=== PATIENT | male | born 1975 | race Two or more races ===

== ENCOUNTER 2024-06-04 09:27 | Emergency (ER) | payer OTHER ==
[~2024-06-04] VITALS: Ht 180.3 cm; Wt 106.4 kg
[2024-06-04 09:30] VITALS: BP 128/86; PULSE 84; RESP 18; TEMP 99; O2SAT 94
[2024-06-04 10:21] LABS: Urine Bacteria None Seen /hpf (None Seen)
[2024-06-04] MEDS: HYDROcodone-ACET 10/325MG TAB PO ONE (10:21)
--- NOTE | 2024-06-04 10:22 | ED.PDOC ---
HPI (NEURO) HPI Comments 49 y.o male with PMHx of migraines, presents to the ED for a chief complaint of a headache that started 3 days ago. Patient reports pain is localized at the top of his head but today radiated to the right side and is associated with photophobia. Patient reports pain is similar to previous migraines, states he has been taking Tylenol, up to 4,000mg per day x 2 days but states no relief. Patient denies any nausea, vomiting, fever, chills, vision changes, or recent head injuries/falls. Patient does mention recent flu like illness consisting of congestion and cough. Chief Complaint: Headache Time Seen by MD: 10:13 Primary Care Provider: LISA Reviewed Notes: Nurses Notes, Medications, Allergies Information Source: Patient Mode of Arrival: Ambulatory Severity: Moderate Headache Severity: Moderate, Like previous Headaches Timing: Days (3) Duration: Since onset Headache Quality: Sharp Headache Location: Generalized Onset: At rest Circumstances: Spontaneous Modifying factors: Nothing Associated Signs and Symptoms: Headache Past Medical History PAST MEDICAL HISTORY: Asthma Past Medical History (Other): migraines Surgical History (Other): left femur Family History Family History: Reviewed,noncontributory to illness Social History Smoker: Non-Smoker Alcohol: Denies ETOH Use Drugs: Denies Drug Use Lives In: Home Constitutional: denies: chills, diaphoresis, fatigue, fever, malaise, sweats, weakness, others EENTM: reports: photophobia; denies: blurred vision, double vision, ear bleeding, ear discharge, ear drainage, ear pain, ear ringing, eye pain, eye redness, hearing loss, mouth pain, mouth swelling, nasal discharge, nose bleeding, nose congestion, nose pain, tearing, throat pain, throat swelling, voice changes, others Respiratory: denies: cough, hemoptysis, orthopnea, SOB at rest, shortness of breath, SOB with excertion, stridor, wheezing, others Cardiovascular: denies: chest pain, dizzy spells, diaphoresis, Dyspnea on exertion, edema, irregular heart beat, left arm pain, lightheadedness, palpitations, PND, syncope, others Gastrointestinal: denies: abdomen distended, abdominal pain, blood streaked bowels, constipated, diarrhea, dysphagia, difficulty swallowing, hematemesis, melena, nausea, poor appetite, poor fluid intake, rectal bleeding, rectal pain, vomiting, others Genitourinary: denies: burning, dysuria, flank pain, frequency, hematuria, incontinence, penile discharge, penile sore, pain, testicle pain, testicle swelling, urgency, others Neurological: reports: headache; denies: dizziness, fainting, left sided numbness, left sided weakness, numbness, paresthesia, pre-existing deficit, right sided numbness, right sided weakness, seizure, speech problems, tingling, tremors, weakness, others Musculoskeletal: denies: back pain, gout, joint pain, joint swelling, muscle pain, muscle stiffness, neck pain, others Integumetry: denies: bruises, change in color, change in hair/nails, dryness, laceration, lesions, lumps, rash, wounds, others Allergic/Immunocompromised: denies: Difficulty Healing, Frequent Infections, Hives, Itching, others Hematologic/Lymphatic: denies: anemia, blood clots, easy bleeding, easy bruising, swollen glands, others Endocrine: denies: excessive hunger, excessive sweating, excessive thirst, excessive urination, flushing, intolerance to cold, intolerance to heat, unexplained weight gain, unexplained weight loss, others Psychiatric: denies: anxiety, bipolar disorder, depression, hopeless, panic disorder, schizophrenia, sleepless, suicidal, others All Other Systems: Reviewed and Negative Physical Exam General Appearance: No Apparent Distress HEENT: Normal ENT Inspection, Pharynx Normal, Sinuses (Mild tenderness to the sinuses), TMs Normal Neck: Full Range of Motion, Non-Tender, Normal, Normal Inspection Respiratory: Chest Non-Tender, Lungs Clear, No Accessory Muscle Use, No Respiratory Distress, Normal Breath Sounds Cardiovascular: No Edema, No JVD, No Murmur, No Gallop, Normal Peripheral Pulses, Regular Rate/Rhythm Breast Exam: Deferred Gastrointestinal: No Organomegaly, Non Tender, No Pulsatile Mass, Normal Bowel Sounds, Soft Genitalia: Deferred Pelvic: Deferred Rectal: Deferred Extremities: No calf tenderness, Normal capillary refill, Normal inspection, Normal range of motion, Non-tender, No pedal edema Musculoskeletal : Apperance: Normal Neurologic: Alert, surgical orderly II-XII nml as Tested, No Motor Deficits, Normal Affect, Normal Mood, No Sensory Deficits Cerebellar Function: Normal Reflexes: Normal Skin: Dry, Normal Color, Warm Lymphatic: No Adenopathy Was a procedure done? Was a procedure done?: No Differential Diagnosis (SZ) Seizure: N/A Headache: Cluster, Migraine, Subarachnoid Hemorrhage X-Ray, Labs, Meds, VS Vital Signs Date Time Temp Pulse Resp B/P (MAP) Pulse Ox O2 Delivery O2 Flow Rate FiO2 06/04/24 10:15 Room Air* 0 21 06/04/24 09:30 99.0 84 18 128/86 (100) 94 99.0 06/04/24 09:30 99.0 84 18 128/86 (100) 94 99.0 Lab Test 06/04/24 10:20 Range/Units Urine Color Light-yellow Yellow Urine Clarity Clear Clear Urine pH 7.5 5.0-9.0 Urine Specific [place] 1.018 1.001-1.035 Urine Protein Negative Negative Urine Ketones Negative Negative Urine Blood 1+ H Negative /uL Urine Nitrite Negative Negative Urine Bilirubin Negative Negative Urine Urobilinogen Normal Negative mg/dL Urine Leukocyte Esterase Negative Negative /uL Urine RBC 4 0 - 3 /hpf Urine Microscopic WBC < 1 0-3 /HPF Urine Squamous Epithelial Cells None seen <5 /hpf Urine Bacteria None seen None Seen /hpf Urine Glucose Normal Normal mg/dL Current Medications Medications (Trade) Dose Ordered Sig/Uriel Route Start Time Stop Time Status Last Admin Acetaminophen/ Hydrocodone Bitart ([place] 10/325MG Tab) 1 tab ONCE ONCE PO 06/04/24 10:15 06/04/24 10:17 DC 06/04/24 10:21 X-ray of the paranasal sinuses show: IMPRESSION: 1. Probable mucosal thickening and partial opacification of the paranasal sinuses. No fluid levels are seen. Correlate with clinical findings. If clinically indicated, CT could be obtained. 2. Sinus canchola appear intact. The patient was being discharged on Zithromax as well as [place] The patient was also given a [place] here in the emergency department's The patient will return to the emergency department's condition worsens. Images Reviewed?: Images reviewed and evaluated by me Time of 1ST Reevaluation: 10:22 Reevaluation 1ST: Unchanged Patient Education/Counseling: Diagnosis, Treatment, Prognosis, Need For Follow Up Family Education/Counseling: No Family Present Departure 1 Departure Time of Disposition: 11:15 Impression: Primary Impression: Cephalgia Qualified Codes: R51.9 - Headache, unspecified Additional Impression: Acute sinusitis Qualified Codes: J01.40 - Acute pansinusitis, unspecified Disposition: HOME / SELF CARE / HOMELESS Condition: Fair e-Prescriptions Hydrocodone-Acetaminophen (Hydrocodone Bitartrate/AC 5-325 mg) 1 Tab Tab 1 TAB PO Q8HP PRN for 5 Days, #15 TAB Prov: DAVE ELI MD 06/04/24 Azithromycin (Zithromax) 500 Mg Tab 1 TAB PO DAILY, #5 TAB Prov: DAVE ELI MD 06/04/24 Discharged With: Self Critical Care Note Critical Care Time?: No Stability Stability form required: No I personally scribed for DAVE ELI MD ([email or web address]) on 06/04/24 at 10:22. Electronically submitted by Sherry Turner ([facility]). DAVE ELI MD Jun 04, 2024 10:22
[2024-06-04 10:47] LABS: Urine Blood 1+ /uL (Negative); Urine Clarity Clear (Clear); Urine Color Light-Yellow (Yellow); Urine Protein, UAD Negative (Negative); Urine Specific Gravity 1.018 (1.001-1.035); Urine Squamous Epithelial Cell None Seen /hpf (<5); Urine Urobilinogen Normal (Negative); Urine WBC < 1 /HPF (0-3); Urine pH 7.5 (5.0-9.0)
--- NOTE | 2024-06-04 11:10 | DVH ---
CLINICAL HISTORY: Headache and sinus pain. TECHNIQUE: 4 views of the paranasal sinuses were obtained. COMPARISON: None FINDINGS: Sinus canchola are intact. There appears to be mucosal thickening and areas of partial opacif ication of the paranasal sinuses. No fluid levels are seen. IMPRESSION: 1. Probable mucosal thickening and partial opacification of the paranasal sinuses. No fluid levels ar e seen. Correlate with clinical findings. If clinically indicated, CT could be obtained. 2. Sinus canchola appear intact.
[2024-06-04] MEDS ORDERED: AZIT500T PO (11:15)
[2024-06-04] MEDS ORDERED: HYDR-4902 PO (11:15)
== END 2024-06-04 11:30 | disposition home or self-care (01) ==
LOC: ER 09:27
DX: J01.90 Acute sinusitis, unspecified (principal); G43.909 Migraine, unspecified, not intractable, without status migrainosus; J45.909 Unspecified asthma, uncomplicated; Z98.890 Other specified postprocedural states
CPT/HCPCS: 70210; 81001